=== PATIENT | female | born 1980 | race Asian ===

== ENCOUNTER 2016-09-11 11:57 | Emergency (ER) | payer SELFPAY ==
[~2016-09-11 11:57] MED LIST: HYDR-2758 PO; NITR100C PO
[2016-09-11] MEDS ORDERED: MORPHINE SULFATE 4 MG/ML DISP.SYRIN. IV/SQ ONE (12:45)
[2016-09-11 13:00] LABS: BASO % 0 % (0-3); CALCIUM 8.4 mg/dL (8.5-10.1); CREATININE 0.9 mg/dL (0.6-1.0); EOS % 1 % (0-3); GFR 71.7; HEMATOCRIT 39.8 % (36.0-47.0); HEMOGLOBIN 13.1 g/dL (12.0-15.5); LYMPH % 22 % (24-48); MEAN CORPUSCULAR HEMOGLOBIN 28 pg (25-35); MEAN CORPUSCULAR HGB CONC 33 g/dL (31-37); MEAN CORPUSCULAR VOLUME 87 fL (79-100); MONO % 7 % (0-9); NEUT % 70 % (31-73); PLATELET COUNT 225 x10^3/uL (140-400); RED BLOOD COUNT 4.61 x10^6/uL (3.50-5.40); RED CELL DISTRIBUTION WIDTH 15.2 % (11.5-14.5); WHITE BLOOD COUNT 9.4 x10^3/uL (4.0-11.0)
[2016-09-11 13:01] LABS: BILIRUBIN,URINE NEGATIVE (NEG); GLUCOSE,URINE NEGATIVE (NEG); NITRITE,URINE POSITIVE (NEG); PH,URINE 6.5; PROTEIN,URINE 30 mg/dL (NEG-TRACE)
--- NOTE | 2016-09-11 13:03 | PHYS DOC ---
Past Medical History Past Medical History: Anxiety Past Surgical History: No Surgical History, Alcohol Use: None Drug Use: None Adult General Chief Complaint Chief Complaint: ABDOMINAL PAIN HPI HPI Patient is a 36 year old suprapubic pain that is been going on for a couple days, is nonradiating, does not migrate. Patient denies vomiting, diarrhea, vaginal discharge, rashes, sick contacts, trauma. Patient denies previous history of surgeries. Patient states that she's had this pain on occasion in the past. Patient denies any back tenderness. 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 Family translating for patient. Review of Systems Review of Systems Constitutional: Denies fever or chills [] HENT: Denies nasal congestion or sore throat [] Respiratory: Denies cough or shortness of breath [] Cardiovascular: No additional information not addressed in HPI GI: Denies nausea, vomiting, bloody stools or diarrhea. Yes to suprapubci pain : Denies dysuria or hematuria [] Musculoskeletal: Denies back pain or joint pain [] Integument: Denies rash or skin lesions [] Neurologic: Denies headache, focal weakness or sensory changes [] Current Medications Current Medications Current Medications Medications (Trade) Dose Ordered Sig/Citlaly Start Time Stop Time Status Last Admin Dose Admin Morphine Sulfate 4 mg 1X ONCE 09/11/16 12:45 09/11/16 12:46 DC 09/11/16 12:57 4 MG Allergies Allergies Allergies Coded Allergies Type Severity Reaction Last Updated Verified No Known Drug Allergies 08/01/15 No Physical Exam Physical Exam Constitutional: Well developed, well nourished, mild distress, non-toxic appearance. [] HENT: Normocephalic, atraumatic,oropharynx moist, no oral exudates, nose normal. [] Eyes: EOMI, conjunctiva normal, no discharge. [] Neck: Normal range of motion, no tenderness, supple, no stridor. [] Cardiovascular:Heart rate regular rhythm, no murmur [] Lungs & Thorax: Bilateral breath sounds clear to auscultation [] Abdomen: Bowel sounds normal, soft, suprapubic TTP w/o g/r, no masses, no pulsatile masses. [] Skin: Warm, dry, no erythema, no rash. [] Back: No tenderness, no CVA tenderness. [] Extremities: No tenderness, no cyanosis, no clubbing, ROM intact, no edema. [] Neurologic: Alert and oriented X 3, no focal deficits noted. [] Psychologic: Affect normal, judgement normal, Current Patient Data Vital Signs Vital Signs Date Time Temp Pulse Resp B/P (MAP) Pulse Ox O2 Delivery O2 Flow Rate FiO2 09/11/16 12:12 98.2 71 22 139/86 (103) 98 Room Air 98.2 Lab Values Laboratory Tests Test 09/11/16 11:19 09/11/16 12:12 09/11/16 12:25 POC Urine HCG, Qualitative Hcg negative (Negative) Urine Collection Type Void Urine Color Red Urine Clarity Cloudy Urine pH 6.5 Urine Specific [place] 1.010 Urine Protein 30 mg/dL (NEG-TRACE) Urine Glucose (UA) Negative mg/dL (NEG) Urine Ketones (Stick) Trace mg/dL (NEG) Urine Blood Large (NEG) Urine Nitrite Positive (NEG) Urine Bilirubin Negative (NEG) Urine Urobilinogen Dipstick 1.0 mg/dL (0.2 mg/dL) Urine Leukocyte Esterase Moderate (NEG) Urine RBC Tntc /HPF (0-2) Urine WBC 20-40 /HPF (0-4) Urine Squamous Epithelial Cells Mod /LPF Urine Bacteria Many /HPF (0-FEW) Urine Mucus Slight /LPF White Blood Count 9.4 x10^3/uL (4.0-11.0) Red Blood Count 4.61 x10^6/uL (3.50-5.40) Hemoglobin 13.1 g/dL (12.0-15.5) Hematocrit 39.8 % (36.0-47.0) Mean Corpuscular Volume 87 fL (79-100) Mean Corpuscular Hemoglobin 28 pg (25-35) Mean Corpuscular Hemoglobin Concent 33 g/dL (31-37) Red Cell Distribution Width 15.2 % (11.5-14.5) H Platelet Count 225 x10^3/uL (140-400) Neutrophils (%) (Auto) 70 % (31-73) Lymphocytes (%) (Auto) 22 % (24-48) L Monocytes (%) (Auto) 7 % (0-9) Eosinophils (%) (Auto) 1 % (0-3) Basophils (%) (Auto) 0 % (0-3) Neutrophils # (Auto) 6.6 x10^3uL (1.8-7.7) Lymphocytes # (Auto) 2.0 x10^3/uL (1.0-4.8) Monocytes # (Auto) 0.7 x10^3/uL (0.0-1.1) Eosinophils # (Auto) 0.1 x10^3/uL (0.0-0.7) Basophils # (Auto) 0.0 x10^3/uL (0.0-0.2) Sodium Level 137 mmol/L (136-145) Potassium Level 4.0 mmol/L (3.5-5.1) Chloride Level 103 mmol/L (98-107) Carbon Dioxide Level 28 mmol/L (21-32) Anion Gap 6 (6-14) Blood Urea Nitrogen 7 mg/dL (7-20) Creatinine 0.9 mg/dL (0.6-1.0) Estimated GFR (Cockcroft-Gault) 71.7 BUN/Creatinine Ratio 8 (6-20) Glucose Level 104 mg/dL (70-99) H Calcium Level 8.4 mg/dL (8.5-10.1) L Total Bilirubin 0.8 mg/dL (0.2-1.0) Aspartate Amino Transferase (AST) 30 U/L (15-37) Alanine Aminotransferase (ALT) 20 U/L (14-59) Alkaline Phosphatase 83 U/L (46-116) Total Protein 8.7 g/dL (6.4-8.2) H Albumin 3.2 g/dL (3.4-5.0) L Albumin/Globulin Ratio 0.6 (1.0-1.7) L Laboratory Tests 09/11/16 12:25 Laboratory Tests 09/11/16 12:25 EKG EKG [] Radiology/Procedures Radiology/Procedures [] Course & Med Decision Making Course & Med Decision Making Pertinent Labs and Imaging studies reviewed. (See chart for details) [] Patient is in no distress, vital signs are unremarkable, patient has had some pain relief after medications. Results have been discussed with the patient and the family they understand the need to follow-up and to take full prescription for antibiotics.[id number] [place] Disclaimer Dragon Disclaimer This electronic medical record was generated, in whole or in part, using a voice recognition dictation system. Departure Departure Impression: Primary Impression: UTI (urinary tract infection) Disposition: 01 HOME, SELF-CARE Condition: IMPROVED Referrals: NO PCP (PCP) patient and family state pt has pcp to follow up with, they just do not recall name at this time. Pt to follow up with pcp in 2-4 days Patient Instructions: Urinary Tract Infection Scripts Phenazopyridine Hcl (PYRIDIUM) 100 Mg Tablet 100 MG PO TID, #6 TAB Prov: Fili SWIFT MD 09/11/16 Ciprofloxacin Hcl (CIPRO) 500 Mg Tablet 1 TAB PO BID, #14 TAB Prov: Fili SWIFT MD 09/11/16 Fili SWIFT MD Sep 11, 2016 13:03
[2016-09-11 13:06] LABS: ALBUMIN 3.2 g/dL (3.4-5.0); ALBUMIN/GLOBULIN RATIO 0.6 (1.0-1.7); TOTAL BILIRUBIN 0.8 mg/dL (0.2-1.0); TOTAL PROTEIN 8.7 g/dL (6.4-8.2)
[2016-09-11 13:07] LABS: RBC,URINE TNTC /HPF (0-2)
[2016-09-11 13:08] LABS: BACTERIA,URINE MANY /HPF (0-FEW); SQUAMOUS EPITHELIAL CELL,UR MOD /LPF
[2016-09-11 13:09] LABS: WBC,URINE 20-40 /HPF (0-4)
[2016-09-11] MEDS ORDERED: PHEN100T82 PO (13:42)
[2016-09-11] MEDS ORDERED: CIPR500T94 PO (13:42)
[2016-09-11 14:10] VITALS: BP 123/80
--- NOTE | 2016-09-13 16:07 | VNOTE ---
CALL BACK NOTE CALL BACK Microbiology 09/11/16 Urine Culture - Final, Complete 09/11/16 Urine Culture Result 1 (DEBORAH) - Final, Complete 09/11/16 Antimicrobic Susceptibility - Final, Complete Patient was discharged with Cipro for UTI. She is resistant to it. Called patient, left a voicemail. 16:44 patient returned our call, she states she does not have any UTI symptoms or she feels better. She was instructed to follow-up with her own doctor. TAWNY BERRY APRN Sep 13, 2016 16:07
== END 2016-09-11 14:11 | disposition home or self-care (01) ==
LOC: ER 11:57
DX: N39.0 Urinary tract infection, site not specified (principal)
CPT/HCPCS: 36415; 80053; 81001; 81025; 85027; 87086; 96374; 99284; J2270; 87186

== ENCOUNTER 2017-04-13 12:30 | Emergency (ER) | payer SELFPAY ==
[2017-04-13 12:56] LABS: URINE HCG POC HCG NEGATIVE (Negative)
[2017-04-13 13:45] LABS: ADD MAN DIFF? NO
[2017-04-13 13:48] LABS: BASO % 0 % (0-3); EOS # 0.2 x10^3/uL (0.0-0.7); EOS % 2 % (0-3); HEMATOCRIT 41.7 % (36.0-47.0); HEMOGLOBIN 13.7 g/dL (12.0-15.5); LYMPH % 25 % (24-48); MEAN CORPUSCULAR HEMOGLOBIN 29 pg (25-35); MEAN CORPUSCULAR HGB CONC 33 g/dL (31-37); MEAN CORPUSCULAR VOLUME 89 fL (79-100); MONO # 0.8 x10^3/uL (0.0-1.1); MONO % 9 % (0-9); NEUT # 5.1 x10^3uL (1.8-7.7); NEUT % 63 % (31-73); PLATELET COUNT 207 x10^3/uL (140-400); RED BLOOD COUNT 4.69 x10^6/uL (3.50-5.40); RED CELL DISTRIBUTION WIDTH 15.1 % (11.5-14.5); WHITE BLOOD COUNT 8.1 x10^3/uL (4.0-11.0)
[2017-04-13 13:49] LABS: BILIRUBIN,URINE NEGATIVE (NEG); CLARITY,URINE CLOUDY; COLOR,URINE AMBER; GLUCOSE,URINE NEGATIVE (NEG); NITRITE,URINE POSITIVE (NEG); PROTEIN,URINE 30 mg/dL (NEG-TRACE)
[2017-04-13] MEDS: KETOROLAC 30 MG/ML INJ. IV ×2 (13:51)
[2017-04-13] MEDS: ONDANSETRON PF 4 MG/2 ML VIAL. IV ×2 (13:51)
[2017-04-13 13:57] LABS: ANION GAP 3 (6-14); BLOOD UREA NITROGEN 10 mg/dL (7-20); BUN/CREATININE RATIO 11 (6-20); CALCIUM 8.4 mg/dL (8.5-10.1); CARBON DIOXIDE 31 mmol/L (21-32); CHLORIDE 104 mmol/L (98-107); CREATININE 0.9 mg/dL (0.6-1.0); GFR 71.7; GLUCOSE 77 mg/dL (70-99); POTASSIUM 3.1 mmol/L (3.5-5.1); SODIUM 138 mmol/L (136-145)
[2017-04-13 14:00] LABS: BACTERIA,URINE MANY /HPF (0-FEW); RBC,URINE >40 /HPF (0-2); SQUAMOUS EPITHELIAL CELL,UR FEW /LPF
[2017-04-13 14:01] LABS: ALBUMIN 3.2 g/dL (3.4-5.0); ALBUMIN/GLOBULIN RATIO 0.6 (1.0-1.7); ALK PHOS 84 U/L (46-116); ALT (SGPT) 24 U/L (14-59); AST (SGOT) 24 U/L (15-37); LIPASE 153 U/L (73-393); TOTAL BILIRUBIN 0.7 mg/dL (0.2-1.0); TOTAL PROTEIN 8.7 g/dL (6.4-8.2)
[2017-04-13] MEDS: POTASSIUM CHLORIDE 20 MEQ TABLET.ER. PO ×2 (14:38)
[2017-04-15 14:21] LABS: CHLAMYDIA PROBE Negative (Negative); GC PROBE Negative (Negative)
== END 2017-04-13 15:21 | disposition home or self-care (01) ==
LOC: ER 12:30
DX: N39.0 Urinary tract infection, site not specified (principal); N93.8 Other specified abnormal uterine and vaginal bleeding; E87.6 Hypokalemia; F41.9 Anxiety disorder, unspecified
CPT/HCPCS: 36415; 76856; 80053; 81001; 81025; 83690; 85025; 87491; 87591; 96374; 96375; 99285-25; J1885; J2405; Q0111

== ENCOUNTER 2018-07-02 21:04 | Emergency (ER) | payer SELFPAY ==
[~2018-07-02] VITALS: Ht 170.2 cm; Wt 109.3 kg
[~2018-07-02 21:04] MED LIST changes: +CEPH500T PO; +CIPR500T94 PO; -HYDR-2758 PO; +HYDR-2761 PO; +PHEN100T82 PO; +POTA20TA82 PO; +TRAM-48 PO
[2018-07-02 21:37] LABS: BILIRUBIN,URINE NEGATIVE (NEG); CLARITY,URINE CLEAR; COLOR,URINE YELLOW; NITRITE,URINE NEGATIVE (NEG); PROTEIN,URINE NEGATIVE (NEG-TRACE)
--- NOTE | 2018-07-02 21:39 | PHYS DOC ---
Past Medical History Past Medical History: Anxiety Past Surgical History: No Surgical History, Alcohol Use: None Drug Use: None Adult General Chief Complaint Chief Complaint: MULTIPLE COMPLAINTS HPI HPI Patient is a 37 year old F who presents with headache and back pain fever abdominal discomfort lower abdomen. She states that she has had the pain since Saturday. h/a is, left sided, constant, and located behind the eye. She reports vomiting without blood. She denies burning with urination, but does have urinary frquency. back pain dull moderate worse on the left. chest pain, history of trauma, or a history of migraines. She does report some abdominal pain, photophobia, and back pain. Review of Systems Review of Systems Constitutional: Reports fever [] Eyes: Denies change in visual acuity, redness, or eye pain [] HENT: Denies nasal congestion or sore throat [] Respiratory: Denies cough or shortness of breath [] Cardiovascular: No additional information not addressed in HPI [] GI: Reports abdominal pain [] : Musculoskeletal: Integument: Denies rash or skin lesions [] Neurologic: Reports headache [] Endocrine: Denies polyuria or polydipsia [] All other systems were reviewed and found to be within normal limits, except as documented in this note. Current Medications Current Medications Current Medications Medications (Trade) Dose Ordered Sig/[facility] Start Time Stop Time Status Last Admin Dose Admin Ceftriaxone Sodium (Rocephin) 1 gm 1X ONCE 07/02/18 22:00 07/02/18 22:01 DC 07/02/18 22:02 1 GM Fentanyl Citrate (Fentanyl 2ml Vial) 50 mcg 1X ONCE 07/02/18 22:30 07/02/18 22:31 DC Ketorolac Tromethamine (Toradol 15mg Vial) 15 mg 1X ONCE 07/02/18 21:45 07/02/18 21:46 DC 07/02/18 21:49 15 MG Sodium Chloride 1,000 ml @ 1,000 mls/hr 1X ONCE 07/02/18 21:45 07/02/18 22:44 DC 07/02/18 21:50 1,000 MLS/HR Allergies Allergies Allergies Coded Allergies Type Severity Reaction Last Updated Verified No Known Drug Allergies 08/01/15 No Physical Exam Physical Exam Constitutional: Well developed, well nourished, no acute distress, non-toxic appearance. [] HENT: Normocephalic, atraumatic, bilateral external ears normal, oropharynx moist, no oral exudates, nose normal. [] Eyes: PERRLA, EOMI, conjunctiva normal, no discharge. [] Neck: Normal range of motion, no tenderness, supple, no stridor. [] Cardiovascular:Heart rate regular rhythm, no murmur [] Lungs & Thorax: Bilateral breath sounds clear to auscultation [] Abdomen: Bowel sounds normal, soft, suprapubic tenderness, no masses, no pulsatile masses. [] Skin: Warm, dry, no erythema, no rash. [] Back: CVA tenderness on the left Extremities: No tenderness, no cyanosis, no clubbing, ROM intact, no edema. [] Neurologic: Alert and oriented X 3, normal motor function, normal sensory function, no focal deficits noted. [] Psychologic: Affect normal, judgement normal, mood normal. [] Current Patient Data Vital Signs Vital Signs Date Time Temp Pulse Resp B/P (MAP) Pulse Ox O2 Delivery O2 Flow Rate FiO2 07/02/18 21:23 100.9 93 21 152/100 (117) 99 Room Air 100.9 Lab Values Laboratory Tests Test 07/02/18 21:07 07/02/18 21:12 07/02/18 21:15 Urine Collection Type Void Urine Color Yellow Urine Clarity Clear Urine pH 8.0 Urine Specific [place] <=1.005 Urine Protein Negative mg/dL (NEG-TRACE) Urine Glucose (UA) Negative mg/dL (NEG) Urine Ketones (Stick) Negative mg/dL (NEG) Urine Blood Moderate (NEG) Urine Nitrite Negative (NEG) Urine Bilirubin Negative (NEG) Urine Urobilinogen Dipstick 2.0 mg/dL (0.2 mg/dL) Urine Leukocyte Esterase Large (NEG) Urine RBC 6-10 /HPF (0-2) Urine WBC 20-40 /HPF (0-4) Urine Squamous Epithelial Cells Few /LPF Urine Bacteria Many /HPF (0-FEW) POC Urine HCG, Qualitative Hcg negative (Negative) White Blood Count 10.3 x10^3/uL (4.0-11.0) Red Blood Count 4.71 x10^6/uL (3.50-5.40) Hemoglobin 14.6 g/dL (12.0-15.5) Hematocrit 43.0 % (36.0-47.0) Mean Corpuscular Volume 91 fL (79-100) Mean Corpuscular Hemoglobin 31 pg (25-35) Mean Corpuscular Hemoglobin Concent 34 g/dL (31-37) Red Cell Distribution Width 13.7 % (11.5-14.5) Platelet Count 219 x10^3/uL (140-400) Neutrophils (%) (Auto) 67 % (31-73) Lymphocytes (%) (Auto) 25 % (24-48) Monocytes (%) (Auto) 7 % (0-9) Eosinophils (%) (Auto) 0 % (0-3) Basophils (%) (Auto) 0 % (0-3) Neutrophils # (Auto) 6.9 x10^3uL (1.8-7.7) Lymphocytes # (Auto) 2.6 x10^3/uL (1.0-4.8) Monocytes # (Auto) 0.7 x10^3/uL (0.0-1.1) Eosinophils # (Auto) 0.0 x10^3/uL (0.0-0.7) Basophils # (Auto) 0.0 x10^3/uL (0.0-0.2) Sodium Level 135 mmol/L (136-145) L Potassium Level 3.4 mmol/L (3.5-5.1) L Chloride Level 98 mmol/L (98-107) Carbon Dioxide Level 29 mmol/L (21-32) Anion Gap 8 (6-14) Blood Urea Nitrogen 6 mg/dL (7-20) L Creatinine 1.1 mg/dL (0.6-1.0) H Estimated GFR (Cockcroft-Gault) 56.5 BUN/Creatinine Ratio 5 (6-20) L Glucose Level 114 mg/dL (70-99) H Calcium Level 8.5 mg/dL (8.5-10.1) Total Bilirubin 1.5 mg/dL (0.2-1.0) H Aspartate Amino Transferase (AST) 23 U/L (15-37) Alanine Aminotransferase (ALT) 26 U/L (14-59) Alkaline Phosphatase 86 U/L (46-116) Total Protein 10.1 g/dL (6.4-8.2) H Albumin 3.5 g/dL (3.4-5.0) Albumin/Globulin Ratio 0.5 (1.0-1.7) L Laboratory Tests 07/02/18 21:15 Laboratory Tests 07/02/18 21:15 EKG EKG [] Radiology/Procedures Radiology/Procedures [] Course & Med Decision Making Course & Med Decision Making Pertinent Labs and Imaging studies reviewed. (See chart for details) 37-year-old female with clinical pyelonephritis back pain urinary frequency headache fever 100.9 heart rate in the 90s blood pressure stable no leukocytosis did have headache but urinalysis strongly suggestive of a urinary source neck is supple doubt other acute process. Patient was given IV fluids Toradol fentanyl and ceftriaxone the emergency room I reviewed the prior urine culture from 2017 and chose Bactrim for antibiotic agent I talked to the family the niece in detail who is providing the majority of translation that should the patient not be able to take antibiotics or throw up or feel weaker or any other new symptoms or concerns to come back to the emergency room right away otherwise should respond to the oral antibiotics. Dragon Disclaimer Dragon Disclaimer This electronic medical record was generated, in whole or in part, using a voice recognition dictation system. Departure Departure Impression: Primary Impression: UTI (urinary tract infection) Disposition: 01 HOME, SELF-CARE Condition: STABLE Referrals: NO PCP (PCP) Scripts Ondansetron Hcl (ZOFRAN) 4 Mg Tablet 4 MG PO PRN TID PRN for NAUSEA/VOMITING, #15 nausea/vomiting Prov: TL HECTOR MD 07/02/18 Sulfamethoxazole/Trimethoprim (BACTRIM DS TABLET) 1 Each Tablet 1 TAB PO BID, #20 TAB Prov: TL HECTOR MD 07/02/18 TL HECTOR MD July 02, 2018 21:38
[2018-07-02 21:43] LABS: BACTERIA,URINE MANY /HPF (0-FEW); SQUAMOUS EPITHELIAL CELL,UR FEW /LPF; WBC,URINE 20-40 /HPF (0-4)
[2018-07-02 21:44] LABS: BASO % 0 % (0-3); EOS % 0 % (0-3); HEMOGLOBIN 14.6 g/dL (12.0-15.5); LYMPH # 2.6 x10^3/uL (1.0-4.8); LYMPH % 25 % (24-48); MEAN CORPUSCULAR HEMOGLOBIN 31 pg (25-35); MEAN CORPUSCULAR HGB CONC 34 g/dL (31-37); MEAN CORPUSCULAR VOLUME 91 fL (79-100); MONO # 0.7 x10^3/uL (0.0-1.1); MONO % 7 % (0-9); NEUT # 6.9 x10^3uL (1.8-7.7); NEUT % 67 % (31-73); PLATELET COUNT 219 x10^3/uL (140-400); RED BLOOD COUNT 4.71 x10^6/uL (3.50-5.40); RED CELL DISTRIBUTION WIDTH 13.7 % (11.5-14.5); WHITE BLOOD COUNT 10.3 x10^3/uL (4.0-11.0)
[2018-07-02] MEDS ORDERED: KETOROLAC 15 MG/ML VIAL. IV ONE (21:45)
[2018-07-02] MEDS ORDERED: IV NORMAL SALINE 1000ML BAG 1,000 ML IV ONE (21:45)
[2018-07-02 21:50] LABS: CALCIUM 8.5 mg/dL (8.5-10.1); CREATININE 1.1 mg/dL (0.6-1.0); GFR 56.5; POTASSIUM 3.4 mmol/L (3.5-5.1)
[2018-07-02] MEDS ORDERED: SULF1TAB24 PO (21:51)
[2018-07-02 21:56] LABS: ALBUMIN 3.5 g/dL (3.4-5.0); ALBUMIN/GLOBULIN RATIO 0.5 (1.0-1.7); TOTAL BILIRUBIN 1.5 mg/dL (0.2-1.0); TOTAL PROTEIN 10.1 g/dL (6.4-8.2)
[2018-07-02] MEDS ORDERED: cefTRIAXone IV Push 1 GM VIAL. IVP ONE (22:00)
[2018-07-02] MEDS ORDERED: ONDA4TAB7 PO (22:17)
[2018-07-02] MEDS ORDERED: fentaNYL PF VIAL 100 MCG/2 ML VIAL IV ONE (22:30)
[2018-07-02 23:30] VITALS: BP 129/80
== END 2018-07-02 23:35 | disposition home or self-care (01) ==
LOC: ER 21:04
DX: N39.0 Urinary tract infection, site not specified (principal); R11.10 Vomiting, unspecified; G43.909 Migraine, unspecified, not intractable, without status migrainosus; R10.30 Lower abdominal pain, unspecified; M54.9 Dorsalgia, unspecified; F41.9 Anxiety disorder, unspecified; Z98.890 Other specified postprocedural states
CPT/HCPCS: 36415; 80053; 81001; 81025; 85025; 87086; 96374; 96375; 99284; J0696; J1885; J3010; J7030; 87186

== ENCOUNTER 2019-03-13 13:14 | Emergency (ER) | payer SELFPAY ==
[~2019-03-13] VITALS: Ht 157.5 cm; Wt 95.0 kg
[~2019-03-13 13:14] MED LIST changes: +ONDA4TAB7 PO; +POTA20TA4 PO; -POTA20TA82 PO; +SULF1TAB24 PO
[2019-03-13 13:53] LABS: BILIRUBIN,URINE NEGATIVE (NEG); CLARITY,URINE CLEAR; COLOR,URINE YELLOW; NITRITE,URINE NEGATIVE (NEG); PROTEIN,URINE 100 mg/dL (NEG-TRACE)
[2019-03-13 14:07] LABS: RBC,URINE >40 /HPF (0-2)
[2019-03-13 14:08] LABS: BACTERIA,URINE 0 /HPF (0-FEW); SQUAMOUS EPITHELIAL CELL,UR FEW /LPF
--- NOTE | 2019-03-13 14:29 | RAD ---
Examination: PELVIS COMPLETE History: Pelvic pain and vaginal bleeding Comparison/Correlation: 04/13/2017 pelvic ultrasound exam Findings: Transabdominal pelvic ultrasound was performed. Uterus measures 10.2 cm x 5.2 cm x 4.6 cm. myometrium is unremarkable. Endometrial thickness of 0.9 cm present. Right ovary measures 3.2 cm x 1.9; 0.5 cm. Left ovary measures 2.6 cm x 2.0 x 2.1 cm. Left adnexal follicle measuring 1.9 cm diameter is present. There is no pelvic free fluid. Uterine cervix is poorly visualized visualized on this exam. Impression: No suspicious process. Limited exam. Electronically signed by: Joaquim Webb MD (03/13/2019 2:26 PM) [facility]
[2019-03-13] MEDS: KETOROLAC 60 MG/2 ML VIAL. IM ONE (14:36)
[2019-03-13 14:38] LABS: BASO % 1 % (0-3); EOS # 0.1 x10^3/uL (0.0-0.7); EOS % 1 % (0-3); HEMATOCRIT 42.9 % (36.0-47.0); HEMOGLOBIN 14.5 g/dL (12.0-15.5); LYMPH # 1.7 x10^3/uL (1.0-4.8); LYMPH % 30 % (24-48); MEAN CORPUSCULAR HEMOGLOBIN 31 pg (25-35); MEAN CORPUSCULAR HGB CONC 34 g/dL (31-37); MEAN CORPUSCULAR VOLUME 92 fL (79-100); MONO # 0.6 x10^3/uL (0.0-1.1); MONO % 11 % (0-9); NEUT # 3.3 x10^3/uL (1.8-7.7); NEUT % 58 % (31-73); PLATELET COUNT 179 x10^3/uL (140-400); RED BLOOD COUNT 4.68 x10^6/uL (3.50-5.40); RED CELL DISTRIBUTION WIDTH 13.3 % (11.5-14.5); WHITE BLOOD COUNT 5.8 x10^3/uL (4.0-11.0)
[2019-03-13 15:01] LABS: ALBUMIN 3.1 g/dL (3.4-5.0); ALBUMIN/GLOBULIN RATIO 0.7 (1.0-1.7); CALCIUM 8.1 mg/dL (8.5-10.1); CREATININE 0.9 mg/dL (0.6-1.0); GFR 70.8; POTASSIUM 3.4 mmol/L (3.5-5.1); TOTAL BILIRUBIN 0.6 mg/dL (0.2-1.0); TOTAL PROTEIN 7.8 g/dL (6.4-8.2)
[2019-03-13] MEDS ORDERED: TRAM50TA PO (15:20)
--- NOTE | 2019-03-13 15:22 | PHYS DOC ---
Past Medical History Past Medical History: No Pertinent History, Anxiety Past Surgical History: Alcohol Use: Rarely Drug Use: None Adult General Chief Complaint Chief Complaint: VAGINAL BLEEDING HPI HPI Patient is a 38 year old took you speaking female who presents to the ED today complaining of 10 out of 10 lower abdominal cramping radiating to her back that began yesterday when her cycle began. Patient reports she had not had a menstrual cycle for 7 months. Denies any chance she is . Patient denies bleeding more than normal. She reports her periods are irregular Review of Systems Review of Systems Constitutional: Denies fever or chills [] Eyes: Denies change in visual acuity, redness, or eye pain [] HENT: Denies nasal congestion or sore throat [] Respiratory: Denies cough or shortness of breath [] Cardiovascular: No additional information not addressed in HPI [] GI: Reports vaginal bleeding, low back pain. Denies nausea, vomiting, bloody stools or diarrhea [] : Denies dysuria or hematuria [] Musculoskeletal: Denies back pain or joint pain [] Integument: Denies rash or skin lesions [] Neurologic: Denies headache, focal weakness or sensory changes [] All other systems were reviewed and found to be within normal limits, except as documented in this note. Current Medications Current Medications Current Medications Medications (Trade) Dose Ordered Sig/Citlaly Start Time Stop Time Status Last Admin Dose Admin Ketorolac Tromethamine (Toradol Im) 60 mg 1X ONCE 03/13/19 13:45 03/13/19 13:46 DC 03/13/19 14:36 60 MG Allergies Allergies Allergies Coded Allergies Type Severity Reaction Last Updated Verified No Known Drug Allergies 08/01/15 No Physical Exam Physical Exam Constitutional: Well developed, well nourished, no acute distress, non-toxic appearance. [] HENT: Normocephalic, atraumatic, bilateral external ears normal, oropharynx moist, no oral exudates, nose normal. [] Eyes: PERRLA, EOMI, conjunctiva normal, no discharge. [] Neck: Normal range of motion, no tenderness, supple, no stridor. [] Cardiovascular:Heart rate regular rhythm, no murmur [] Lungs & Thorax: Bilateral breath sounds clear to auscultation [] Abdomen: Bowel sounds normal, soft, no tenderness, no masses, no pulsatile masses. [] Pelvic exam External pelvic appears normal, cervix is not visualized due to bleeding and body habitus. Mild amount of bright red blood in the vaginal vault consistent with menstruation. No CMT, no adnexal tenderness. Skin: Warm, dry, no erythema, no rash. [] Back: No tenderness, no CVA tenderness. [] Extremities: No tenderness, no cyanosis, no clubbing, ROM intact, no edema. [] Neurologic: Alert and oriented X 3, normal motor function, normal sensory function, no focal deficits noted. [] Psychologic: Affect normal, judgement normal, mood normal. [] Current Patient Data Vital Signs Vital Signs Date Time Temp Pulse Resp B/P (MAP) Pulse Ox O2 Delivery O2 Flow Rate FiO2 03/13/19 13:25 98.5 78 16 156/94 (114) 99 Room Air 98.5 Lab Values Laboratory Tests Test 03/13/19 13:20 03/13/19 13:27 03/13/19 14:30 Urine Collection Type Unknown Urine Color Yellow Urine Clarity Clear Urine pH 6.0 Urine Specific [place] 1.025 Urine Protein 100 mg/dL (NEG-TRACE) Urine Glucose (UA) Negative mg/dL (NEG) Urine Ketones (Stick) Negative mg/dL (NEG) Urine Blood Large (NEG) Urine Nitrite Negative (NEG) Urine Bilirubin Negative (NEG) Urine Urobilinogen Dipstick 1.0 mg/dL (0.2 mg/dL) Urine Leukocyte Esterase Trace (NEG) Urine RBC >40 /HPF (0-2) Urine WBC 1-4 /HPF (0-4) Urine Squamous Epithelial Cells Few /LPF Urine Bacteria 0 /HPF (0-FEW) Urine Mucus Slight /LPF POC Urine HCG, Qualitative Hcg negative (Negative) White Blood Count 5.8 x10^3/uL (4.0-11.0) Red Blood Count 4.68 x10^6/uL (3.50-5.40) Hemoglobin 14.5 g/dL (12.0-15.5) Hematocrit 42.9 % (36.0-47.0) Mean Corpuscular Volume 92 fL (79-100) Mean Corpuscular Hemoglobin 31 pg (25-35) Mean Corpuscular Hemoglobin Concent 34 g/dL (31-37) Red Cell Distribution Width 13.3 % (11.5-14.5) Platelet Count 179 x10^3/uL (140-400) Neutrophils (%) (Auto) 58 % (31-73) Lymphocytes (%) (Auto) 30 % (24-48) Monocytes (%) (Auto) 11 % (0-9) H Eosinophils (%) (Auto) 1 % (0-3) Basophils (%) (Auto) 1 % (0-3) Neutrophils # (Auto) 3.3 x10^3/uL (1.8-7.7) Lymphocytes # (Auto) 1.7 x10^3/uL (1.0-4.8) Monocytes # (Auto) 0.6 x10^3/uL (0.0-1.1) Eosinophils # (Auto) 0.1 x10^3/uL (0.0-0.7) Basophils # (Auto) 0.0 x10^3/uL (0.0-0.2) Sodium Level 141 mmol/L (136-145) Potassium Level 3.4 mmol/L (3.5-5.1) L Chloride Level 104 mmol/L (98-107) Carbon Dioxide Level 28 mmol/L (21-32) Anion Gap 9 (6-14) Blood Urea Nitrogen 9 mg/dL (7-20) Creatinine 0.9 mg/dL (0.6-1.0) Estimated GFR (Cockcroft-Gault) 70.8 BUN/Creatinine Ratio 10 (6-20) Glucose Level 83 mg/dL (70-99) Calcium Level 8.1 mg/dL (8.5-10.1) L Total Bilirubin 0.6 mg/dL (0.2-1.0) Aspartate Amino Transferase (AST) 19 U/L (15-37) Alanine Aminotransferase (ALT) 14 U/L (14-59) Alkaline Phosphatase 83 U/L (46-116) Total Protein 7.8 g/dL (6.4-8.2) Albumin 3.1 g/dL (3.4-5.0) L Albumin/Globulin Ratio 0.7 (1.0-1.7) L Laboratory Tests 03/13/19 14:30 Laboratory Tests 03/13/19 14:30 Microbiology 03/13/19 Wet Prep - Final, Complete EKG EKG [] Radiology/Procedures Radiology/Procedures []PROCEDURE: PELVIS COMPLETE Examination: PELVIS COMPLETE History: Pelvic pain and vaginal bleeding Comparison/Correlation: 04/13/2017 pelvic ultrasound exam Findings: Transabdominal pelvic ultrasound was performed. Uterus measures 10.2 cm x 5.2 cm x 4.6 cm. myometrium is unremarkable. Endometrial thickness of 0.9 cm present. Right ovary measures 3.2 cm x 1.9; 0.5 cm. Left ovary measures 2.6 cm x 2.0 x 2.1 cm. Left adnexal follicle measuring 1.9 cm diameter is present. There is no pelvic free fluid. Uterine cervix is poorly visualized visualized on this exam. Impression: No suspicious process. Limited exam. Electronically signed by: Joaquim Cobb MD (03/13/2019 2:26 PM) [facility] DICTATED and SIGNED BY: JOAQUIM COBB MD DATE: 03/13/19 1426 Course & Med Decision Making Course & Med Decision Making Pertinent Labs and Imaging studies reviewed. (See chart for details) This is a 38-year-old female patient presenting to the ED today complaining of vaginal bleeding and abdominal cramping that began yesterday, patient is on her menstrual cycle. She had not had her cycle for the last 7 months. Her periods are irregular. Negative urine hCG, urine analysis is negative for any acute findings.Wet Prep is negative, CBC with a normal hemoglobin and hematocrit, CMP-no acute findings. Dragon Disclaimer Dragon Disclaimer This electronic medical record was generated, in whole or in part, using a voice recognition dictation system. Departure Departure Impression: Primary Impression: Dysfunctional uterine bleeding Additional Impression: Dysmenorrhea Disposition: HOME, SELF-CARE Condition: STABLE Referrals: NO PCP (PCP) JOSE DAVID SRINIVASAN MD follow up in 1-2 weeks Patient Instructions: Dysmenorrhea, [id number], Uterine Bleeding, Dysfunctional Additional Instructions: Pelvic ultrasound is negative for any acute findings. Patient was reassured, discharged to home. Given prescription for diclofenac as needed for pain. Follow-up with primary care doctor and [employer]I ASSOCIATE provided in the next 7 days. Prescription was sent to the pharmacy Problem Qualifiers TAWNY BERRY APRN Mar 13, 2019 15:22
[2019-03-13 15:55] VITALS: BP 128/78
== END 2019-03-13 15:58 | disposition home or self-care (01) ==
LOC: ER 13:14
DX: N93.8 Other specified abnormal uterine and vaginal bleeding (principal); R10.30 Lower abdominal pain, unspecified; F41.9 Anxiety disorder, unspecified; Z98.890 Other specified postprocedural states
CPT/HCPCS: 76856; 80053; 81001; 81025; 85025; 87491; 87591; 96372; 99285; J1885; Q0111